=== PATIENT | male | born 1950 | race Caucasian/White ===

== ENCOUNTER → 2016-10-03 | Outpatient (CLI) | payer OTHER ==
[~2016-10-03] MED LIST: ANTIVERT 25MG25 MG PO; ASPIRIN E.C.325 MG PO; BIAXIN; CIALIS; CLARITIN; COSOPT EYE DROPS OP; FLONASE NASAL S16 GM NS; MULTIPLE VITAMI1 CAP PO; PRILOSEC 20MG20 MG PO; ULTRAM 50MG TAB50 MG PO; XALATAN EYE DROPS OP; combigan
== END ==
LOC: COL.RAD 13:04
DX: S83.281A Other tear of lateral meniscus, current injury, right knee, initial encounter (principal); S83.411A Sprain of medial collateral ligament of right knee, initial encounter; M25.461 Effusion, right knee

== ENCOUNTER 2017-01-09 20:35 | Emergency (ER) | payer MEDICARE, OTHER ==
[~2017-01-09] VITALS: Ht 167.6 cm; Wt 70.5 kg
[~2017-01-09 20:35] MED LIST changes: -PRILOSEC 20MG20 MG PO
[2017-01-09 20:38] VITALS: TEMP 98.5
[2017-01-09] MEDS ORDERED: PRILOSEC 20MG20 MG PO (20:50)
[2017-01-09 21:01] LABS: BASO # 0.1 (0.0-0.2); BASO % 0.7 % (0.0-2.0); EOS # 0.2 (0.0-0.7); EOS % 2.2 % (0-4.0); GRAN # 4.3 (1.4-6.5); GRAN % 59.5 % (42.2-75.2); HEMATOCRIT 45.1 % (42.0-52.0); HEMOGLOBIN 15.9 g/dl (13.5-18.0); LYMPH # 1.9 (1.2-3.4); LYMPH % 26.7 % (20.0-51.0); MEAN CELL VOLUME 94 fl (80.0-100.0); MEAN CORPUSCULAR HEMOGLOBIN 33 pg (27.0-31.0); MEAN CORPUSCULAR HGB CONC 35 g/dl (33.0-37.0); MEAN PLATELET VOLUME 10.5 fl (7.4-10.4); MONO # 0.8 (0.1-0.6); MONO % 10.8 % (1.7-9.3); PLATELET COUNT 158 K/mm3 (130-400); WHITE BLOOD COUNT 7.2 K/mm3 (4.8-10.8)
[2017-01-09 21:11] LABS: ADJUSTED CALCIUM 9.5 mg/dL (8.4-10.2); ALANINE AMINOTRANSFERASE 32 U/L (21-72); ALBUMIN 4.5 gm/dL (3.5-5.0); ALKALINE PHOSPHATASE 51 U/L (50-136); ANION GAP 12 mmol/L (7-16); BILIRUBIN,TOTAL 0.7 mg/dL (0.0-1.0); BLOOD UREA NITROGEN 17 mg/dL (9-20); CALCIUM 9.9 mg/dL (8.4-10.2); CARBON DIOXIDE 27 mmol/L (22-30); CHLORIDE 99 mmol/L (98-107); CREATININE, serum 1.04 mg/dL (0.66-1.25); GLUCOSE 109 mg/dL (74-106); SODIUM 138 mmol/L (137-145); TOTAL PROTEIN 7.5 gm/dL (6.4-8.2)
[2017-01-09 21:22] LABS: B-TYPE NATRIURETIC PEPTIDE 72 pg/mL (0-125); TROPONIN-I < 0.012 ng/mL (0.000-0.034)
[2017-01-09 23:39] VITALS: BP 132/92; PULSE 61
== END 2017-01-09 23:40 | disposition home or self-care (01) ==
LOC: COL.ER 20:35
PROVIDERS: Emergency Medicine
DX: R07.9 Chest pain, unspecified (principal)

== ENCOUNTER 2018-03-11 10:39 | Day surgery (SDC) | payer MEDICARE, OTHER ==
[~2018-03-11] VITALS: Ht 167.6 cm; Wt 71.2 kg
[2018-03-11] VITALS (8 sets, daily range): BP systolic 119–131; BP diastolic 71–87; PULSE 52–78; TEMP 97.6–98.4
[~2018-03-11 10:39] MED LIST changes: +PRILOSEC 20MG20 MG PO
[2018-03-11] MEDS ORDERED: TIMOPTIC OCUDOS0.25% OU (11:29)
[2018-03-11] MEDS ORDERED: ZIOPTAN OD (11:29)
[2018-03-11] MEDS ORDERED: BENADRYL25 M2 PO (11:30)
[2018-03-11] MEDS ORDERED: GLUCOSAMIN 500 PO (11:31)
[2018-03-11] MEDS ORDERED: THERATEARS SGL PO (11:31)
[2018-03-11] MEDS ORDERED: MOTRIN 800800 MG/TAB PO (11:32)
[2018-03-11] MEDS ORDERED: CALCIUM 600MG+D1 TAB PO (11:33)
[2018-03-11] MEDS ORDERED: TYLENOL 500MG500 MG PO (11:34)
[2018-03-11] MEDS ORDERED: ZOFRAN ODT4 MG PO (14:39)
[2018-03-11] MEDS ORDERED: MOTRIN 600600 MG/TAB PO (14:39)
[2018-03-11] MEDS ORDERED: ROXICODONE 55 MG/TAB PO (14:39)
== END 2018-03-11 17:55 | disposition home or self-care (01) ==
LOC: SDCO 10:39
DX: K40.90 Unilateral inguinal hernia, without obstruction or gangrene, not specified as recurrent (principal); D17.6 Benign lipomatous neoplasm of spermatic cord; G47.33 Obstructive sleep apnea (adult) (pediatric); M17.0 Bilateral primary osteoarthritis of knee; K21.0 Gastro-esophageal reflux disease with esophagitis; Z98.52 Vasectomy status; Z88.1 Allergy status to other antibiotic agents; Z91.040 Latex allergy status; Z87.09 Personal history of other diseases of the respiratory system; Z82.49 Family history of ischemic heart disease and other diseases of the circulatory system
CPT/HCPCS: A4314; C1781; J0360; J1170; J1885; J2250; J2405; J2704; J3010; J7120